=== PATIENT | female | born 1970 | race Asian ===

== ENCOUNTER → 2020-01-02 08:05 | Outpatient (CLI) | payer OTHER, SELFPAY ==
--- NOTE | 2020-01-02 | DI.MG.S_ITS ---
BILATERAL DIGITAL SCREENING MAMMOGRAM 3D/2D WITH CAD: 01/02/2020 CLINICAL: Routine screening. Comparison is made to exams dated: 12/22/2016 mammogram, 01/18/2018 mammogram, and 12/31/2018 mammogram - outside location. The tissue of both breasts is heterogeneously dense. This may lower the sensitivity of mammography. Current study was also evaluated with a Computer Aided Detection (CAD) system. There are benign calcifications in both breasts. There also is a biopsy clip in the right breast. No significant masses, calcifications, or other findings are seen in either breast. There has been no significant interval change. IMPRESSION: BENIGN There is no mammographic evidence of malignancy. A 1 year screening mammogram is recommended. This exam was interpreted at Station ID: [id number]. NOTE: For mammograms, a report in lay terms will be sent to the patient. Approximately 15% of breast malignancies will not be visualized mammographically. In the management of a palpable breast mass, a negative mammogram must not discourage biopsy of a clinically suspicious lesion. Electronically Signed By: Brock gordon/vishal:01/02/2020 11:13:46 letter sent: Normal Exam ACR BI-RADS Category 2: Benign Finding(s) 3342F
== END ==
PROVIDERS: PCP Family Medicine; Referring Provider Family Medicine; Visit Provider Family Medicine
DX: Z12.31 Encounter for screening mammogram for malignant neoplasm of breast (principal)
CPT/HCPCS: 77063; 77067

== ENCOUNTER → 2021-02-20 09:54 | Outpatient (CLI) | payer OTHER, SELFPAY ==
--- NOTE | 2021-02-20 | DI.MG.S_ITS ---
BILATERAL DIGITAL SCREENING MAMMOGRAM 3D/2D WITH CAD: 02/20/2021 CLINICAL: Routine screening. Comparison is made to exams dated: 01/02/2020 mammogram - [facility], 12/31/2018 mammogram, and 01/18/2018 mammogram - outside location. The tissue of both breasts is heterogeneously dense. This may lower the sensitivity of mammography. Current study was also evaluated with a Computer Aided Detection (CAD) system. There are benign calcifications in both breasts. There also is a biopsy clip in the right breast. No significant masses, calcifications, or other findings are seen in either breast. There has been no significant interval change. IMPRESSION: BENIGN There is no mammographic evidence of malignancy. A 1 year screening mammogram is recommended. This exam was interpreted at Station ID: [id number]. NOTE: For mammograms, a report in lay terms will be sent to the patient. Approximately 15% of breast malignancies will not be visualized mammographically. In the management of a palpable breast mass, a negative mammogram must not discourage biopsy of a clinically suspicious lesion. Electronically Signed By: Ivana devlin/vishal:02/22/2021 10:33:47 letter sent: Normal Exam ACR BI-RADS Category 2: Benign Finding(s) 3342F
== END ==
PROVIDERS: PCP Family Medicine; Referring Provider Student in an Organized Health Care Education/Training Program; Visit Provider Student in an Organized Health Care Education/Training Program
DX: Z12.31 Encounter for screening mammogram for malignant neoplasm of breast (principal)
CPT/HCPCS: 77063; 77067

== ENCOUNTER → 2021-07-21 16:45 | Outpatient (CLI) | payer OTHER, SELFPAY ==
[2021-07-21 17:35] LABS: Add Manual Diff / Slide Review NO; Basophils Absolute Auto 100 /uL (0-100); Basophils Percent Auto 0.7 % (0-2); Eosinophils Absolute Auto 400 /uL (0-450); Eosinophils Percent Auto 5.8 % (2-4); Hematocrit 42.5 % (36-46); Hemoglobin 14.4 g/dL (12.0-16.0); Lymphocytes Absolute Auto 1600 /uL (1100-4500); Lymphocytes Percent Auto 21.2 % (25-40); Mean Corpuscular HGB Conc 33.9 % (30-36); Mean Corpuscular Hemoglobin 29.4 PG (26-34); Mean Corpuscular Volume 86.6 fL (80-100); Monocytes Absolute Auto 500 /uL (0-900); Monocytes Percent Auto 6.3 % (3-14); Neutrophils Absolute Auto 5000 /uL (1500-7000); Platelet Count 283 X10^3/uL (150-400); Red Blood Cell Count 4.91 X10^6/uL (4.0-5.2); Red Cell Distribution Width 12.8 % (11.6-14.8); White Blood Cell Count 7.6 X10^3/uL (4.5-11.0)
[2021-07-21 17:54] LABS: Alanine Aminotransferase 28 IU/L (<35); Albumin 4.8 g/dL (3.5-5.0); Albumin Globulin Ratio 1.3 (1.0-2.8); Alkaline Phosphatase 84 U/L (38-126); Aspartate Aminotransferase 40 IU/L (14-36); BUN Creatinine Ratio 21.2 (6-22); Bilirubin Total 0.8 mg/dL (0.2-1.3); Blood Urea Nitrogen 14 mg/dL (7-17); Calcium 9.4 mg/dL (8.4-10.2); Carbon Dioxide 31 mmol/L (22-32); Chloride 101 mmol/L (98-107); Cholesterol 228 mg/dL (140-199); Estimated Glomerular Filt Rate > 60 mL/min (>60); Globulin 3.7 g/dL (1.7-4.1); Glucose 71 mg/dL (70-100); HDL Cholesterol 70 mg/dL (40-60); HEMOLYSIS < 15 (0-50); LDL Cholesterol Calculated 122 mg/dL (<100); Potassium 3.6 mmol/L (3.4-5.1); Sodium 141 mmol/L (137-145); Total Protein 8.5 g/dL (6.3-8.2); Triglycerides 179 mg/dL (35-150)
[2021-07-21 18:24] LABS: TSH w/ Reflex to FT4 1.25 uIU/mL (0.47-4.68)
== END ==
PROVIDERS: PCP Internal Medicine; Referring Provider Internal Medicine; Visit Provider Internal Medicine
DX: N95.1 Menopausal and female climacteric states (principal); R53.83 Other fatigue
CPT/HCPCS: 36415; 80053; 80061; 83001; 84443; 85025

== ENCOUNTER → 2022-02-22 08:00 | Outpatient (CLI) | payer OTHER, SELFPAY ==
--- NOTE | 2022-02-22 08:02 | DI.MG.S_ITS ---
BILATERAL DIGITAL SCREENING MAMMOGRAM 3D/2D WITH CAD: 02/22/2022 CLINICAL: Routine screening. Comparison is made to exams dated: 02/20/2021 mammogram, 01/02/2020 mammogram - [facility], and 12/31/2018 mammogram - outside location. Both breasts are heterogeneously dense, which may obscure small masses (category c / 51-75% glandular tissue). Current study was also evaluated with a Computer Aided Detection (CAD) system. There are benign calcifications in the right breast. There also is a biopsy clip in the right breast. No significant masses, calcifications, or other findings are seen in either breast. There has been no significant interval change. IMPRESSION: BENIGN There is no mammographic evidence of malignancy. A 1 year screening mammogram is recommended. Based on the Tyrer Cuzick model (a risk assessment model) the patient's lifetime risk is 12.1% and her 10 year risk is 3.1%. According to the ACR, ACS, and NCCN guidelines, an annual breast MRI exam along with mammogram is recommended if the patient's lifetime risk is 20% or greater. This exam was interpreted at Station ID: [id number]. NOTE: For mammograms, a report in lay terms will be sent to the patient. Approximately 15% of breast malignancies will not be visualized mammographically. In the management of a palpable breast mass, a negative mammogram must not discourage biopsy of a clinically suspicious lesion. Electronically Signed By: Ivana devlin/vishal:02/22/2022 12:52:19 letter sent: Normal Exam ACR BI-RADS Category 2: Benign Finding(s) 3342F
== END ==
PROVIDERS: PCP Internal Medicine; Referring Provider Internal Medicine; Visit Provider Internal Medicine
DX: Z12.31 Encounter for screening mammogram for malignant neoplasm of breast (principal)
CPT/HCPCS: 77063; 77067

== ENCOUNTER → 2022-11-22 10:43 | Outpatient (CLI) | payer OTHER, SELFPAY ==
[2022-11-22 12:58] LABS: Add Manual Diff / Slide Review NO; Basophils Absolute Auto 100 /uL (0-100); Basophils Percent Auto 1.9 % (0-2); Eosinophils Absolute Auto 300 /uL (0-450); Eosinophils Percent Auto 5.4 % (2-4); Hematocrit 43.3 % (36-46); Hemoglobin 14.7 g/dL (12.0-16.0); Lymphocytes Absolute Auto 1600 /uL (1100-4500); Mean Corpuscular HGB Conc 33.9 % (30-36); Mean Corpuscular Hemoglobin 29.5 PG (26-34); Monocytes Absolute Auto 300 /uL (0-900); Monocytes Percent Auto 5.9 % (3-14); Neutrophils Absolute Auto 2700 /uL (1500-7000); Neutrophils Percent Auto 54.8 % (50-75); Platelet Count 272 X10^3/uL (150-400); Red Blood Cell Count 4.98 X10^6/uL (4.0-5.2); Red Cell Distribution Width 12.2 % (11.6-14.8); White Blood Cell Count 4.9 X10^3/uL (4.5-11.0)
[2022-11-22 13:25] LABS: Alanine Aminotransferase 38 IU/L (<35); Albumin 4.6 g/dL (3.5-5.0); Albumin Globulin Ratio 1.4 (1.0-2.8); Alkaline Phosphatase 127 U/L (38-126); Aspartate Aminotransferase 38 IU/L (14-36); BUN Creatinine Ratio 23.6 (6-22); Bilirubin Total 1.3 mg/dL (0.2-1.3); Blood Urea Nitrogen 17 mg/dL (7-17); Calcium 9.9 mg/dL (8.4-10.2); Carbon Dioxide 32 mmol/L (22-32); Chloride 99 mmol/L (98-107); Cholesterol 222 mg/dL (140-199); Estimated Glomerular Filt Rate > 60 mL/min (>60); Globulin 3.3 g/dL (1.7-4.1); Glucose 100 mg/dL (70-100); HDL Cholesterol 65 mg/dL (40-60); HEMOLYSIS < 15 (0-50); LDL Cholesterol Calculated 131 mg/dL (<100); Potassium 4.8 mmol/L (3.4-5.1); Sodium 138 mmol/L (137-145); Total Protein 7.9 g/dL (6.3-8.2); Triglycerides 132 mg/dL (35-150)
[2022-11-23 04:24] LABS: x Labcorp Estim. Avg Glu (eAG) 120 mg/dL (.); x Labcorp Hemoglobin A1c 5.8 % (4.8-5.6)
== END ==
PROVIDERS: PCP Internal Medicine; Referring Provider Internal Medicine; Visit Provider Internal Medicine
DX: E78.5 Hyperlipidemia, unspecified (principal); R89.9 Unspecified abnormal finding in specimens from other organs, systems and tissues; Z83.3 Family history of diabetes mellitus
CPT/HCPCS: 36415; 80053; 80061; 83036; 85025

== ENCOUNTER 2023-01-12 06:49 | Day surgery (SDC) | payer OTHER, SELFPAY ==
--- NOTE | 2023-01-12 | PATH_ITS ---
[facility] Accession Number: [id number] No. of containers..02 Tissue . 01 Material submitted: . PART A: colon - DESCENDING COLON POLYPS PART B: rectum - RECTAL POLYPS . 01 Diagnosis: A. Descending Colon Polyps: Portion of tubular adenoma x1. Portion of hyperplastic polyp x1. . B. Rectal Polyps: Portion of hyperplastic polyp x1. Superficial portion of colorectal mucosa x1 with benign lymphoid aggregates. Additional levels through the block are noncontributory. TETE 01/18/2023 1646 Local . 01 Electronically signed: . Angeles Day MD, Pathologist NPI- [id number] . 01 Gross description: . Part A: DESCENDING COLON POLYPS: Received in formalin is 2 fragment(s) of blancas, soft tissue measuring 1.5 x 0.5 x 0.1 cm to 0.5 x 0.3 x 0.1 cm submitted entirely in 1 cassette(s) Part B: RECTAL POLYPS: Received in formalin is 2 fragment(s) of blancas, soft tissue measuring 1.5 x 0.4 x 0.1 cm to 0.4 x 0.3 x 0.1 cm submitted entirely in 1 cassette(s) /AAY 01/13/2023 2303 Local . 01 Pathologist provided ICD-10: K63.5 . 01 CPT . 165035, 160288 Specimen Comment: A courtesy copy of this report has been sent to [phone] Performed at: 01 [facility] [address] [place] [address] [id number] MD Brock Littlejohn MD Phone: [phone]
[2023-01-12 07:09] VITALS: BP 146/93; PULSE 71; RESP 16; TEMP 36.2; O2SAT 97; BMI 24.1
--- NOTE | 2023-01-12 07:37 | PM.HP.1 ---
History of Present Illness History of Present Illness Date Patient Seen: 01/12/23 Time Patient Seen: 07:37 Chief complaint: SDC Narrative: Haley is a 52-year-old woman who had a colonoscopy 2 or 3 years ago and a large tubulovillous adenoma had been removed by Dr. Dallas at [facility]. You recommended a six-month repeat colonoscopy but she was unable to get in until now. See prior office note from November for details. [facility] Medical History Eczematous dermatitis History of colon polyps Menopausal syndrome Mixed hyperlipidemia Social History marital status: details: (Cheikh), no children, works at [employer] household members: spouse Smoking Status: Never smoker alcohol intake: current Meds Home Medications and Allergies Home Medications Medication Instructions Recorded Confirmed Type ammonium lactate 12 % topical cream 1 applic topical QD-BID PRN dry 07/21/21 01/12/23 Rx skin #225 grams hydrocortisone 2.5 % topical cream 1 applic topical BID PRN rash #20 07/21/21 01/12/23 Rx grams sodium,potassium,mag sulfates 17.5 See Rx Instructions PO .COMPLEX 12/07/22 01/12/23 Rx gram-3.13 gram-1.6 gram oral soln #354 mL (Suprep Bowel Prep Kit) Allergies Allergy/AdvReac Type Severity Reaction Status Date / Time No Known Drug Allergies Allergy Verified 01/12/23 07:32 Exam Vital Signs (past 8 hours): - 01/12/23 07:09 Temperature 97.2 F L Pulse Rate 71 Respiratory Rate 16 Blood Pressure 146/93 H Pulse Oximetry 97 Oxygen Delivery Method Room Air Oxygen Delivery Method Room Air Const General: healthy appearing Resp Effort & Inspection: normal respiratory effort Assessment & Plan Assessment and plan (1) History of colon polyps: Status: Acute Plan 52-year-old woman who had a prior colonoscopy with a large tubulovillous adenoma who is here for a repeat colonoscopy. We reviewed the risks and benefits. She would like to proceed.
[2023-01-12 08:08] VITALS: BP 118/82; PULSE 73; RESP 19; TEMP 36.3; O2SAT 98
--- NOTE | 2023-01-12 08:08 | P.OP.COLON_ITS ---
Operative Date/Time/Diagnoses Date of procedure: 01/12/23 Time of procedure: 08:08 Pre-op diagnosis: History of advanced adenoma Post-op diagnosis: same Procedure & Clinicians Study performed: Colonoscopy Same procedure as scheduled: Yes Surgeon: Laurent Sutton Procedure Notes Procedure in detail: Surgeon: Laurent Sutton MD Anesthesia: Howie Garcia DO Procedure: The patient was brought to the endoscopy suite, placed in left lateral decubitus position. The patient was connected to monitoring devices. A time-out was performed. Sedation was administered. Once the patient was adequately sedated, a digital rectal exam was performed and was normal. The scope was then inserted and advanced to the cecum where the appendiceal orifice was identified and photographed. The scope was then slowly withdrawn over greater than 6 minutes. The mucosa was thoroughly inspected. There were 2 poly ps in the descending colon, each about 5 mm, and each removed with a cold snare and sent together. There were 2 5 mm polyps in the upper rectum each removed with cold snare and sent together. Tattoo ink was seen in the mid rectum but no residual polypoid tissue was seen there. The scope was retroflexed in the rectum. No other abnormalities were seen. The scope was straightened and removed. The patient was awakened and brought to recovery. Scope withdrawal time: 11 minutes Sedation time: 17 minutes EBL: 5 mL Findings: 2 small polyps in the descending colon, 2 small polyps in the upper rectum and no residual adenoma in the mid rectum where the tattoo ink was placed Post-procedure Disposition: PACU
[2023-01-12 08:13] VITALS: BP 117/77; PULSE 60; RESP 13; O2SAT 100
[2023-01-12 08:18] VITALS: BP 120/89; PULSE 74; RESP 13; O2SAT 100
[2023-01-12 08:32] VITALS: BP 123/61; PULSE 62; RESP 18; TEMP 36.4; O2SAT 98
== END 2023-01-12 08:32 | disposition home or self-care (01) ==
PROVIDERS: PCP Internal Medicine; Referring Provider Surgery; Visit Provider Surgery
PROC: 0DJD8ZZ Inspection of Lower Intestinal Tract, Via Natural or Artificial Opening Endoscopic (ICD-10-PCS; CPT 45378; principal; 2023-01-12 07:45)
DX: Z12.11 Encounter for screening for malignant neoplasm of colon (principal); Z86.010 Personal history of colon polyps; D12.4 Benign neoplasm of descending colon; K62.1 Rectal polyp
CPT/HCPCS: 45385; J2704

== ENCOUNTER → 2023-02-21 15:26 | Outpatient (CLI) | payer OTHER, SELFPAY ==
--- NOTE | 2023-02-21 | DI.MG.S_ITS ---
BILATERAL DIGITAL SCREENING MAMMOGRAM 3D/2D WITH CAD: 02/21/2023 CLINICAL: Routine screening. Comparison is made to exams dated: 02/22/2022 mammogram, 02/20/2021 mammogram, 01/02/2020 mammogram - [facility], and 12/31/2018 mammogram - outside location. Both breasts are heterogeneously dense, which may obscure small masses (category c / 51-75% glandular tissue). Current study was also evaluated with a Computer Aided Detection (CAD) system. There are benign calcifications in the right breast. There also is a biopsy clip in the right breast. No significant masses, calcifications, or other findings are seen in either breast. There has been no significant interval change. IMPRESSION: BENIGN There is no mammographic evidence of malignancy. A 1 year screening mammogram is recommended. Based on the Tyrer Cuzick model (a risk assessment model) the patient's lifetime risk is 12.2% and her 10 year risk is 3.3%. According to the ACR, ACS, and NCCN guidelines, an annual breast MRI exam along with mammogram is recommended if the patient's lifetime risk is 20% or greater. This exam was interpreted at Station ID: [id number]. NOTE: For mammograms, a report in lay terms will be sent to the patient. Approximately 15% of breast malignancies will not be visualized mammographically. In the management of a palpable breast mass, a negative mammogram must not discourage biopsy of a clinically suspicious lesion. Electronically Signed By: Michael bishop/vishal:02/22/2023 09:45:35 letter sent: Normal Exam ACR BI-RADS Category 2: Benign Finding(s) 3342F
== END ==
PROVIDERS: PCP Internal Medicine; Referring Provider Internal Medicine; Visit Provider Internal Medicine
DX: Z12.31 Encounter for screening mammogram for malignant neoplasm of breast (principal)
CPT/HCPCS: 77063; 77067

== ENCOUNTER → 2024-02-26 12:44 | Outpatient (CLI) | payer OTHER, SELFPAY ==
--- NOTE | 2024-02-26 12:45 | DI.MG.S_ITS ---
BILATERAL DIGITAL SCREENING MAMMOGRAM 3D/2D WITH CAD: 02/26/2024 CLINICAL: Routine screening. Comparison is made to exams dated: 02/21/2023 mammogram, 02/22/2022 mammogram, and 02/20/2021 mammogram - . The breasts are heterogeneously dense, which may obscure small masses (category c / 51-75% glandular tissue). Current study was also evaluated with a Computer Aided Detection (CAD) system. There are benign calcifications in the right breast. There also is a biopsy clip in the right breast. No significant masses, calcifications, or other findings are seen in either breast. There has been no significant interval change. IMPRESSION: BENIGN There is no mammographic evidence of malignancy. A 1 year screening mammogram is recommended. Based on the Tyrer Cuzick model (a risk assessment model) the patient's lifetime risk is 12.2% and her 10 year risk is 3.5%. According to the ACR, ACS, and NCCN guidelines, an annual breast MRI exam along with mammogram is recommended if the patient's lifetime risk is 20% or greater. This exam was interpreted at Station ID: [id number]. NOTE: For mammograms, a report in lay terms will be sent to the patient. Approximately 15% of breast malignancies will not be visualized mammographically. In the management of a palpable breast mass, a negative mammogram must not discourage biopsy of a clinically suspicious lesion. Electronically Signed By: Issa calero/vishal:02/26/2024 17:18:56 letter sent: Normal Exam ACR BI-RADS Category 2: Benign
== END ==
PROVIDERS: PCP Internal Medicine; Referring Provider Internal Medicine; Visit Provider Internal Medicine
DX: Z12.31 Encounter for screening mammogram for malignant neoplasm of breast (principal); R92.333 Mammographic heterogeneous density, bilateral breasts
CPT/HCPCS: 77063; 77067

== ENCOUNTER 2024-03-05 13:36 | Emergency (ER) | payer OTHER, SELFPAY ==
[2024-03-05 13:40] VITALS: BP 127/78; PULSE 96; RESP 16; TEMP 38.2; O2SAT 96; BMI 26.4
[2024-03-05 13:53] VITALS: TEMP 38.2
[2024-03-05] MEDS: ACETAMINOPHEN 325 MG TABLET 975 MG PO (13:53)
[2024-03-05 14:30] LABS: COVID-19 CEPHEID 4-PLEX PCR Negative (Negative); Influenza A - CEPHEID Flu A NEGATIVE (NEGATIVE); Influenza B - CEPHEID Flu B NEGATIVE (NEGATIVE); Respiratory Syncytial Virus Negative (Negative)
== END 2024-03-05 15:18 | disposition left against medical advice (07) ==
PROVIDERS: Emergency Medicine; Emergency Provider Student in an Organized Health Care Education/Training Program; PCP Internal Medicine
DX: R50.9 Fever, unspecified (principal)
CPT/HCPCS: 0241U; 99283

== ENCOUNTER 2024-11-13 05:00 | Emergency (ER) | payer OTHER, SELFPAY ==
--- NOTE | 2024-11-13 05:15 | DI.RAD.S_ITS ---
PROCEDURE: XR CHEST 2V INDICATIONS: Cough, dyspnea TECHNIQUE: 2 views of the chest were acquired. COMPARISON: None. FINDINGS AND IMPRESSION: No airspace consolidation or pleural effusion. Normal heart size. Unremarkable osseous structures. No discrepancy from the preliminary report. Dictated by: Deondre Sanz M.D. on 11/13/2024 at 6:23 Approved by: Deondre Sanz M.D. on 11/13/2024 at 6:24
[2024-11-13 05:18] VITALS: BP 183/94; PULSE 77; RESP 19; TEMP 37.1; O2SAT 99; BMI 26.4
--- NOTE | 2024-11-13 05:18 | EKG_ITS ---
[address] [address] [address], [place] [address] Test Date: 2024-11-13 Pat Name: Yoselin Clay Department: [facility] Room: Gender: Female Licensed Physical Therapy Assistant: : 1970 Requested By: Order Number: [id number] Reading MD: Naif Whipple Measurements Intervals [place] Rate: 68 P: 33 [place]: 160 QRS: 57 QRSD: 78 T: 55 QT: 416 QTc: 442 Interpretive Statements Normal sinus rhythm Electronically Signed On 11-16-2024 9:20:29 PDT by Naif Whipple
--- NOTE | 2024-11-13 05:20 | ED_ITS ---
HPI - SOB/Dyspnea General Chief Complaint: Shortness of Breath/Dyspnea Stated Complaint: Cough, Chest Pain x4days Time Seen by Provider: 11/13/24 05:02 History of Present Illness HPI Narrative: 54-year-old female complains of 5 days duration of cough initially productive of yellow-green sputum and now dry, but with increasing shortness of breath. Some chest pain with coughing otherwise no chest pain. No lower extremity swelling, no leg pain. Denies history of known asthma or chronic lung disease, does not usually use oxygen at home. MD Complaint: shortness of breath Related Data Previous Rx's ?Medication ?Instructions ?Recorded ammonium lactate 12 % topical cream 1 applic topical Q D-BID PRN dry 02/21/23 skin #225 grams hydrocortisone 2.5 % topical cream 1 applic topical BI D PRN rash #20 02/21/23 grams prednisone 20 mg tablet 40 mg (2 x 20 mg) PO DAILY 5 days 11/13/24 #10 tabs Allergies Allergy/AdvReac Type Severity Reaction Status Date / Time No Known Drug Allergies Allergy Verified 11/13/24 05:18 Patient History Medical History Eczematous dermatitis History of colon polyps Menopausal syndrome Mixed hyperlipidemia Social History marital status: details: (Cheikh), no children, works at [employer]) household members: spouse Smoking Status: Never smoker alcohol intake: current alcohol intake frequency: holidays/special occasions only Exam Narrative Exam Narrative: GENERAL: Well-developed patient, in mild distress. Frequent coughing HEAD: Atraumatic. Normocephalic. EYES: Pupils equal round and reactive. Extraocular motions intact. No scleral icterus. No injection or drainage. ENT: Nose without bleeding, purulent drainage. Throat without erythema, tonsillar hypertrophy or exudate. Airway patent. NECK: Trachea midline. Non tender CARDIOVASCULAR: Regular rate and rhythm without murmurs, gallops, or rubs. RESPIRATORY: Wheeze bilaterally, no intercostal or suprasternal retractions, can speak in full sentences. GASTROINTESTINAL: Abdomen soft, non-tender, nondistended. EXTREMITIES: No edema or joint tenderness. BACK: Nontender without deformity or crepitance. No flank tenderness. NEURO: AOx3. Motor functions grossly nonfocal. SKIN: No rash or erythema of visible areas Initial Vital Signs Initial Vital Signs: Vital Signs Temperature 98.7 F 11/13/24 05:18 Pulse Rate 77 11/13/24 05:18 Respiratory Rate 19 11/13/24 05:18 Blood Pressure 183/94 H 11/13/24 05:18 Pulse Oximetry 99 11/13/24 05:18 Oxygen Delivery Method Room Air 11/13/24 05:18 Course Orders Ordered: ED Orders 11/13/24 07:10 US abdomen limited Stat Discontinued Medications Albuterol (Albuterol 2.5 Mg/3 Ml Neb (Adult)) 2.5 mg INH Q20M DEXTER Stop: 11/13/24 06:41 Last Admin: 11/13/24 06:33 Dose: 2.5 mg Documented By: Admin: 11/13/24 06:05 Dose: 2.5 mg Documented By: Admin: 11/13/24 05:52 Dose: 2.5 mg Documented By: Albuterol (Albuterol Hfa Prepack) 1 box MISC DIRECTED ONE Stop: 11/13/24 06:44 Last Admin: 11/13/24 06:50 Dose: 1 box Documented By: Albuterol/Ipratropium (Albuterol/Ipratropium 3 Ml Ampul) 3 ml INH NOW ONE Stop: 11/13/24 05:18 Last Admin: 11/13/24 05:37 Dose: 3 ml Documented By: Methylprednisolone (Methylprednisolone 125 Mg/2 Ml Vial) 125 mg IV NOW ONE Stop: 11/13/24 05:48 Last Admin: 11/13/24 06:20 Dose: 125 mg Documented By: KATIE Prednisone (Prednisone 20 Mg Tablet) 60 mg PO NOW ONE Stop: 11/13/24 05:18 Vital Signs Vital signs: Vital Signs - 8 hr 11/13/24 10:41 Pulse Rate 80 Blood Pressure 119/67 Pulse Oximetry 95 Oxygen Delivery Method Room Air MDM - SOB/Dyspnea Lab Data Attestation: I reviewed the patient's lab results. Lab results narrative: White blood cell count 9700, hemoglobin 13.8, platelets adequate. Glucose 106. Normal renal function, serum CO2, electrolytes. Total bilirubin 1.5, AST 121, ALT 132, alkaline phosphatase 145. BNP 187 not elevated. COVID influenza RSV negative. 11/13/24 05:55 11/13/24 05:55 Labs: Lab Results 11/13/24 Range/Units 05:55 WBC 9.7 (4.5-11.0) X10^3/uL RBC 4.65 (4.0-5.2) X10^6/uL Hgb 13.8 (12.0-16.0) g/dL Hct 40.4 (36-46) % MCV 86.9 (80-100) fL MCH 29.7 (26-34) PG MCHC 34.2 (30-36) % RDW 12.2 (11.6-14.8) % Plt Count 264 (150-400) X10^3/uL Neut % (Auto) 62.9 (50-75) % Lymph % (Auto) 25.2 (25-40) % [place] % (Auto) 5.5 (3-14) % Eos % (Auto) 5.3 H (2-4) % Baso % (Auto) 1.1 (0-2) % Neut # (Auto) 6100 (7523-1533) /uL Lymph # (Auto) 2500 (2744-6227) /uL [place] # (Auto) 500 (0-900) /uL Eos # (Auto) 500 H (0-450) /uL Baso # (Auto) 100 (0-100) /uL Sodium 140 (137-145) mmol/L Potassium 3.8 (3.4-5.1) mmol/L Chloride 105 (98-107) mmol/L Carbon Dioxide 27 (22-32) mmol/L BUN 10 (7-17) mg/dL Creatinine 0.77 (0.52-1.04) mg/dL Estimated GFR > 60 (>60) mL/min BUN/Creatinine Ratio 13.0 (6-22) Glucose 106 H (70-99) mg/dL Calcium 9.3 (8.4-10.2) mg/dL Total Bilirubin 1.5 H (0.2-1.3) mg/dL AST 121 H (14-36) IU/L ALT 132 H (<35) IU/L Alkaline Phosphatase 145 H (38-126) U/L Troponin I < 0.012 (0.01-0.034) ng/mL NT-Pro-B Natriuret Pep 187 H (<125) pg/mL Total Protein 7.9 (6.3-8.2) g/dL Albumin 4.4 (3.5-5.0) g/dL Globulin 3.5 (1.7-4.1) g/dL Albumin/Globulin Ratio 1.3 (1.0-2.8) SARS-CoV-2 (PCR) Negative (Negative) Influenza A (RT-PCR) Flu a negative (NEGATIVE) Influenza B (RT-PCR) Flu b negative (NEGATIVE) RSV (PCR) Negative (Negative) Imaging Data Chest x-ray: Radiologist's Impression: [address] [address] XRay Report Signed Patient: Yoselin Clay MR#: [id number] : 1970 Acct:[id number] Age/Sex: 54 / F Date of Service: 11/13/24 Loc: ED Accession Number: [id number] Procedure: XR chest 2V Ordering Provider: Rachid Swift MD PROCEDURE: XR CHEST 2V INDICATIONS: Cough, dyspnea TECHNIQUE: 2 views of the chest were acquired. COMPARISON: None. FINDINGS AND IMPRESSION: No airspace consolidation or pleural effusion. Normal heart size. Unremarkable osseous structures. No discrepancy from the preliminary report. Dictated by: Deondre Sanz M.D. on 11/13/2024 at 6:23 Approved by: Deondre Sanz M.D. on 11/13/2024 at 6:24 ECG Data Attestation: I personally reviewed and interpreted this ECG as follows: Interpretation: 0544, normal sinus rhythm with rate of 68, no obvious ST segment elevation or depression changes. VA 160, QRS 78, QTC 442. [facility] Narrative Medical decision making narrative: 54-year-old female with recent cough and increasing shortness of breath, wheeze on examination, no oxygen requirement, no respiratory distress. IV Solu-Medrol, nebulized albuterol/ipratropium. Chest x-ray EKG labs pending. COVID swab pending. Chest x-ray shows no acute changes. See radiology report. EKG shows sinus rhythm without obvious ischemia. Lab data: White blood cell count 9700, hemoglobin 13.8, platelets adequate. Glucose 106. Normal renal function, serum CO2, electrolytes. Total bilirubin 1.5, AST 121, ALT 132, alkaline phosphatase 145. BNP 187 not elevated. COVID influenza RSV negative. Still wheezy after initial breathing treatment, will repeat nebulized bronchodilators. IV Solu-Medrol given. Symptoms improved, no oxygen requirement. Further steroid prednisone pulse prescription sent to her pharmacy. Albuterol MDI with spacer dispensed, 2 puffs 4 times daily for the next 1 week and then as needed. Recheck advised with PCP in the next couple of days. Return precautions discussed. Discharged home with family. Liver functions mildly elevated, increased from prior study. No tenderness. Patient we would like to have ultrasound imaging of her liver now that she is here, ultrasound right upper quadrant abdomen ordered. US RUQ Abdomen showed no obvious liver or ductal abnormalities. See radiology report. DC home with Albuterol/spacer, Prednisone pulse Rx sent to her pharmacy. Recheck advised with PCP in the next couple days. FU abnormal liver function tets as outpatient for now. Return precautions discussed. Discharge Plan Departure Patient Disposition: Home Clinical Impression: Upper respiratory infection, Reactive airway disease, Abnormal liver function tests Instructions: DI for Asthma -- Adult, DI for Viral Upper Respiratory Infection -- Adult Activity Restrictions/Additional Instructions: Recent cough with some wheezing on lung examination, no oxygen requirement at this time. Breathing treatments given. Chest x-ray showed no pneumonia at this time. IV steroids given to help with wheezing. Prescription for further steroid to take by mouth sent to your pharmacy. Albuterol inhaler with spacer dispensed, with plan to use inhaler 2 puffs 4 times daily for this next week and then as needed. Recheck symptoms with your regular doctor in the next couple of days. Return to this/nearest emergency department for any change worsening symptoms or any concerns prior. Prescriptions: New prednisone 20 mg tablet 40 mg PO DAILY 5 Days Qty: 10 0RF No Action ammonium lactate 12 % cream 1 applic topical QD-BID PRN (Reason: dry skin) Qty: 225 3RF hydrocortisone 2.5 % cream 1 applic topical BID PRN (Reason: rash) Qty: 20 5RF Referrals: Misael Lo MD [Primary Care Provider, Internal Medicine] Stand Alone Forms: Patient Portal/API
[2024-11-13] MEDS: ALBUTEROL/IPRATROPIUM 3 ML AMPUL INH (05:37)
[2024-11-13 05:41] VITALS: PULSE 66; RESP 18; O2SAT 99
[2024-11-13] MEDS: ALBUTEROL 2.5 MG/3 ML NEB (ADULT) INH ×3 (05:52→06:33)
[2024-11-13 06:07] LABS: Add Manual Diff / Slide Review NO; Hematocrit 40.4 % (36-46); Hemoglobin 13.8 g/dL (12.0-16.0); Lymphocytes Absolute Auto 2500 /uL (1100-4500); Mean Corpuscular HGB Conc 34.2 % (30-36); Mean Corpuscular Hemoglobin 29.7 PG (26-34); Mean Corpuscular Volume 86.9 fL (80-100); Platelet Count 264 X10^3/uL (150-400)
[2024-11-13 06:21] LABS: Alanine Aminotransferase 132 IU/L (<35); Albumin 4.4 g/dL (3.5-5.0); Albumin Globulin Ratio 1.3 (1.0-2.8); Alkaline Phosphatase 145 U/L (38-126); Blood Urea Nitrogen 10 mg/dL (7-17); Calcium 9.3 mg/dL (8.4-10.2); Carbon Dioxide 27 mmol/L (22-32); Chloride 105 mmol/L (98-107); Estimated Glomerular Filt Rate > 60 mL/min (>60); Globulin 3.5 g/dL (1.7-4.1); Glucose 106 mg/dL (70-99); HEMOLYSIS 27 (0-50); Potassium 3.8 mmol/L (3.4-5.1); Sodium 140 mmol/L (137-145); Total Protein 7.9 g/dL (6.3-8.2)
[2024-11-13 06:30] LABS: NT-proBNP (BNP-Adult 18+) 187 pg/mL (<125)
[2024-11-13 06:43] LABS: Influenza A - CEPHEID Flu A NEGATIVE (NEGATIVE); Influenza B - CEPHEID Flu B NEGATIVE (NEGATIVE)
[2024-11-13] MEDS: ALBUTEROL HFA PREPACK 1 BOX MISC (06:50)
[2024-11-13 07:01] LABS: COVID-19 CEPHEID 4-PLEX PCR Negative (Negative)
[2024-11-13 07:03] LABS: Troponin I < 0.012 ng/mL (0.01-0.034)
--- NOTE | 2024-11-13 07:10 | DI.US.S_ITS ---
PROCEDURE: US ABDOMEN LIMITED INDICATIONS: abnl liver functions TECHNIQUE: Real-time scanning was performed of the abdominal and retroperitoneal organs, with image documentation. COMPARISON: None. FINDINGS: Liver: Liver is normal in size and homogeneous in echotexture. Gallbladder: No gallstones. No wall thickening. No pericholecystic edema. Negative sonographic Millan's sign. Biliary ducts: Intrahepatic bile ducts are non-dilated. Extrahepatic bile duct caliber measures 5 mm. Normal is 6-7 mm or less in diameter, or 10 mm or less post-cholecystectomy. Pancreas: Visualized portions of the pancreas are sonographically normal. Miscellaneous: No free abdominal fluid. IMPRESSION: Unremarkable sonographic evaluation of the right upper abdomen. No abnormalities identified to explain patient's abnormal liver function tests. Dictated by: Issa Betancourt M.D. on 11/13/2024 at 7:56 Approved by: Issa Betancourt M.D. on 11/13/2024 at 7:57
[2024-11-13 10:41] VITALS: BP 119/67; PULSE 80; O2SAT 95
== END 2024-11-13 10:41 | disposition home or self-care (01) ==
PROVIDERS: Emergency Provider Emergency Medicine; PCP Internal Medicine
DX: J06.9 Acute upper respiratory infection, unspecified (principal); J45.909 Unspecified asthma, uncomplicated; R79.89 Other specified abnormal findings of blood chemistry; R07.9 Chest pain, unspecified
CPT/HCPCS: 36415; 71046; 76705; 80053; 83880; 84484; 85025; 87637; 93005; 94640; 96374; 99284; J2919; J7613

== ENCOUNTER → 2025-01-30 08:45 | Outpatient (CLI) | payer OTHER, SELFPAY ==
[2025-01-30 09:33] LABS: Hemoglobin A1C% w Est Avg Glu 6.2 % (4.0-6.0)
[2025-01-30 09:41] LABS: Alanine Aminotransferase 44 IU/L (<35); Albumin 4.8 g/dL (3.5-5.0); Albumin Globulin Ratio 1.5 (1.0-2.8); Alkaline Phosphatase 124 U/L (38-126); Blood Urea Nitrogen 15 mg/dL (7-17); Calcium 9.8 mg/dL (8.4-10.2); Carbon Dioxide 29 mmol/L (22-32); Chloride 100 mmol/L (98-107); Cholesterol 232 mg/dL (140-199); Estimated Glomerular Filt Rate > 60 mL/min (>60); Globulin 3.2 g/dL (1.7-4.1); Glucose 111 mg/dL (70-99); HDL Cholesterol 61 mg/dL (40-60); HEMOLYSIS < 15 (0-50); Potassium 4.2 mmol/L (3.4-5.1); Sodium 138 mmol/L (137-145); Total Protein 8.0 g/dL (6.3-8.2); Triglycerides 184 mg/dL (35-150)
== END ==
PROVIDERS: PCP Internal Medicine; Referring Provider Internal Medicine; Visit Provider Internal Medicine
DX: R73.01 Impaired fasting glucose (principal); E78.2 Mixed hyperlipidemia
CPT/HCPCS: 36415; 80053; 80061; 83036